=== PATIENT | male | born 1960 | race Caucasian/White ===

== ENCOUNTER 2016-11-27 07:24 | Inpatient (IN) | payer MEDICARE, OTHER ==
--- NOTE | 2016-11-29 13:26 | NUR ---
1250: REPORT RECEIVED FROM YIFAN ROY RN.
--- NOTE | 2016-11-29 14:22 | NUR ---
1355: PT ON FLOOR TO ROOM VIA STRETCHER. PT ALERT AND ORIENTED X3.
--- NOTE | 2016-12-01 16:15 | NUR ---
PATIENT'S REPORT GIVEN TO JAZMIN CHAMBERS RN AND ALL QUESTIONS ANSWERED. PATIENT CALLED HIS SISTER AND SOME OTHER FAMILY MEMBERS TO LET THEM KNOW THAT HE WAS GOING TO BE MOVED TO ROOM 302. ALL OF THE PATIENT'S BELONGINGS WERE PACKED UP AND PREPARED TO BE MOVED ALONG WITH HIS MEDICATIONS AND CHART.
--- NOTE | 2016-12-01 16:40 | NUR ---
PATIENT EXITED THE ICU VIA BED ACCOMPANIED BY 2 PLEAT PATTERNMAKER'S IN NO ACUTE DISTRESS TO GO TO ROOM 302. PATIENT VERY APPRECIATIVE OF THE CARE RECEIVED IN THE ICU. EXCITED ABOUT GETTING TO BE MOVED TO A BIGGER ROOM UPSTAIRS WITH A BATHROOM. REPORT ALREADY GIVEN TO JAZMIN CHAMBERS RN.
[2016-12-06] MEDS ORDERED: NEURONTIN300 MG PO (08:12)
[2016-12-06] MEDS ORDERED: VALIUM5 MG PO (08:12)
[2016-12-06] MEDS ORDERED: NORCO 7.5-3251 EACH PO (08:13)
[2016-12-06] MEDS ORDERED: POLYETHYLENE GL17 GM PO (08:13)
[2016-12-06] MEDS ORDERED: LEXAPRO10 MG PO (08:13)
[2016-12-06] MEDS ORDERED: K-DUR20 MEQ PO (08:14)
[2016-12-06] MEDS ORDERED: ZETIA10 MG PO (08:14)
== END 2016-12-05 16:15 | disposition home health service (06) | DRG 388 ==
LOC: ER 07:24 → MED 09:56 → SDC 10:48 → ICU 12:00 → MED 12:00 → SDC 12:12 → MED 12:12 → ICU 11-29 13:55 → MED 12-01 17:17
PROVIDERS: ADMIT Internal Medicine
PROC: 0DJD8ZZ Inspection of Lower Intestinal Tract, Via Natural or Artificial Opening Endoscopic (ICD-10-PCS; principal; 2016-11-27)
PROC: 02HV33Z Insertion of Infusion Device into Superior Vena Cava, Percutaneous Approach (ICD-10-PCS; 2016-11-29)
PROC: B548ZZA Ultrasonography of Superior Vena Cava, Guidance (ICD-10-PCS; 2016-11-29)
DX: K56.60 Unspecified intestinal obstruction (principal); J69.0 Pneumonitis due to inhalation of food and vomit; J15.211 Pneumonia due to Methicillin susceptible Staphylococcus aureus; J96.91 Respiratory failure, unspecified with hypoxia; I69.351 Hemiplegia and hemiparesis following cerebral infarction affecting right dominant side; K64.8 Other hemorrhoids; E87.6 Hypokalemia; F41.9 Anxiety disorder, unspecified; F32.9 Major depressive disorder, single episode, unspecified; Z85.47 Personal history of malignant neoplasm of testis; Z88.7 Allergy status to serum and vaccine; Z88.8 Allergy status to other drugs, medicaments and biological substances; Z96.89 Presence of other specified functional implants; Z79.899 Other long term (current) drug therapy; I69.920 Aphasia following unspecified cerebrovascular disease; Z83.3 Family history of diabetes mellitus; K56.41 Fecal impaction; E78.5 Hyperlipidemia, unspecified; R25.2 Cramp and spasm; E83.42 Hypomagnesemia; Z87.898 Personal history of other specified conditions; Z95.1 Presence of aortocoronary bypass graft; R53.1 Weakness
CPT/HCPCS: 36415; 87507; 93306; 94664; 97162-GP; 97166; C1751; J0696; J1650; J2704